=== PATIENT | female | born 1965 | race Caucasian/White ===

== ENCOUNTER 2018-04-25 22:06 | Observation (INO) | payer OTHER ==
[2018-04-25] MEDS ORDERED: ONDANSETRON 4 MG/2 ML VIAL IVP STA (23:03)
[2018-04-25] MEDS ORDERED: SODIUM CHLORIDE 0.9% 1,000 ML IV STA ×2 (23:03)
[2018-04-25] MEDS ORDERED: KETOROLAC 30 MG/ML 1 ML VIAL IVP STA (23:03)
[2018-04-25 23:43] LABS: Basophils % (A) 0 %; Eosinophils % (A) 0 %; HCT 43.9 % (34.0-46.0); HGB 14.1 gm/dL (11.4-16.0); Lymphocytes # (A) 0.9 k/uL (1.0-4.8); Lymphocytes % (A) 7 %; MCH 30.7 pg (25.0-35.0); MCHC 32.2 g/dL (31.0-37.0); MCV 95.5 fL (80.0-100.0); Mean Platelet Volume 7.2; Monocytes # (A) 0.3 k/uL (0-1.0); Monocytes % (A) 2 %; Neutrophils # (A) 10.8 k/uL (1.3-7.7); Neutrophils % (A) 89 %; Platelet Count 270 k/uL (150-450); RBC 4.59 m/uL (3.80-5.40); RDW 13.1 % (11.5-15.5); WBC 12.1 k/uL (3.8-10.6)
[2018-04-25 23:54] LABS: Calcium 9.7 mg/dL (8.4-10.2); Total Bilirubin 0.5 mg/dL (0.2-1.3); Total Protein 8.2 g/dL (6.3-8.2)
[2018-04-26 00:05] LABS: Potassium 4.4 mmol/L (3.5-5.1)
--- NOTE | 2018-04-26 00:06 | CT ---
EXAMINATION TYPE: CT abdomen pelvis wo con DATE OF EXAM: 04/25/2018 COMPARISON: None HISTORY: left flank pain CT DLP: 385.8 mGycm Automated exposure control for dose reduction was used. TECHNIQUE: Helical acquisition of images was performed from the lung bases through the pelvis. FINDINGS: Lung bases are clear. There is no pleural effusion. Heart size is normal. There is no pericardial eff usion. Stomach appears normal. Liver spleen appear normal. There are clips from cholecystectomy. Bile ducts are not dilated. There is moderate left-sided hydronephrosis and perinephric edema. There is periureteral edema. There are 2 5 mm calcifications in the pelvis on the left side that could be stones within the distal left ureter. Right kidney has normal size and contour without hydronephrosis. The bladder distends smooth ly. There is no free fluid in the pelvis. There is no intestinal wall thickening. There is no mesente shaji edema or adenopathy. There is no inguinal hernia. The lumbar vertebra have normal alignment. There is narrowing of L4-5 di sc space. There is no compression fracture. IMPRESSION: HIGH-GRADE OBSTRUCTION OF THE LEFT UPPER COLLECTING SYSTEM WITH PERIURETERAL AND PERINEPHRIC EDEMA. 3 MM CALCULUS UPPER POLE LEFT KIDNEY. THERE ARE PROBABLY OBSTRUCTING CALCULI IN THE DISTAL LEFT URETER .
--- NOTE | 2018-04-26 00:41 | ED ---
Abdominal Pain HPI - General Chief Complaint: Abdominal Pain Stated Complaint: Kidney stone Time Seen by Provider: 04/25/18 22:49 Source: patient Mode of arrival: ambulatory Limitations: no limitations - History of Present Illness Initial Comments: This 53-year-old white female presents with a complaint of some left flank pain. She states that this has been present over the last 2 days. She denies any anterior abdominal pain. She's had some slight urgency and frequency but no dysuria or hematuria. She denies any known fever but has had some chills. She's had nausea and several episodes of vomiting. She denies any history of kidney stones or pyelonephritis. She denies any previous similar symptoms. No other complaints or modifying factors. She states that the pain is been fairly severe. - Related Data Home Medications Medication Instructions Recorded Confirmed Acetaminophen Tab [Tylenol Tab] 500 mg PO TID 04/25/18 04/25/18 Biotin 5 mg PO DAILY 04/25/18 04/25/18 Calcium Carbonate/Vitamin D3 1 cap PO BID 04/25/18 04/25/18 [Calcium 600-Vit D3 500 Softgel] Calcium/Magnesium/Zinc 1 tab PO DAILY 04/25/18 04/25/18 [Iiqjtqc-Udrnythve-Hmbt Tablet] DULoxetine HCL [Cymbalta] 30 mg PO BID 04/25/18 04/25/18 Dextroamphetamine/Amphetamine 10 mg PO BID 04/25/18 04/25/18 [Adderall] Meloxicam [Mobic] 7.5 mg PO DAILY 04/25/18 04/25/18 Pyridoxine HCl (Vitamin B6) 100 mg PO DAILY 04/25/18 04/25/18 [Vitamin B-6] Tart Borja Extract 1200mg 1,200 mg PO DAILY 04/25/18 04/25/18 Topiramate [Topamax] 100 mg PO BID 04/25/18 04/25/18 Allergies Allergy/AdvReac Type Severity Reaction Status Date / Time No Known Allergies Allergy Verified 04/25/18 22:33 Review of Systems ROS Statement: Those systems with pertinent positive or pertinent negative responses have been documented in the HPI. ROS Other: All systems not noted in ROS Statement are negative. Past Medical History Additional Past Medical History / Comment(s): fibromyalgia. neuropathy. History of Any Multi-Drug Resistant Organisms: None Reported Past Surgical History: Appendectomy, Cholecystectomy Past Psychological History: ADD/ADHD Smoking Status: Never smoker Past Alcohol Use History: Occasional Past Drug Use History: Marijuana General Exam - General Exam Comments Initial Comments: GENERAL: The patient is well nourished and well hydrated. VITAL SIGNS: Heart rate, blood pressure, respiratory rate reviewed as recorded in nurse's notes. EYES: Pupils are round and reactive. Extraocular movements are intact. No conjunctival / lid redness or swelling. ENT: No external evidence of injury, swelling, or ecchymosis. Airway is patent. Throat is clear. NECK: Nontender. No swelling or evidence of injury. No subcutaneous emphysema. Trachea is midline. No thyroid mass. HEART: Regular rate and rhythm. Good peripheral pulses. LUNGS/CHEST: Breath sounds clear and equal bilaterally. No rales, rhonchi, or wheezes. No ecchymosis, subcutaneous emphysema, or tenderness. ABDOMEN: There is moderate tenderness noted to the left flank. No anterior abdominal tenderness. No palpable masses or organomegaly. No peritoneal signs. No abdominal wall swelling or ecchymosis. EXTREMITIES: No extremity tenderness. Normal muscle tone and function. No thoracolumbar tenderness. NEUROLOGIC: Sensation is grossly intact. Cranial nerve exam reveals face is symmetrical, tongue is midline, speech is clear. SKIN: No abrasions or ecchymosis is noted. No induration or masses noted. PSYCHIATRIC: Alert and oriented. Appropriate behavior and judgment. Limitations: no limitations Course Vital Signs 04/25/18 04/26/18 22:13 00:39 Temperature 97.5 F L Pulse Rate 78 82 Respiratory 16 18 Rate Blood Pressure 116/73 119/75 O2 Sat by Pulse 100 100 Oximetry Medical Decision Making - Medical Decision Making The patient was seen and examined. All diagnostics are reviewed. The computed tomography scan does show evidence of some hydronephrosis on the left side. There is a stone in the left kidney. There is also to likely stones present to the distal left ureter measuring 5 mm and 2 mm. There is some edema noted to the left ureter as well. The laboratory does show some mild renal insufficiency. She receives some Toradol as well as some Zofran moderate relief of symptomatology. An IV was started and she was thoroughly hydrated. The patient states that the Toradol and Zofran initially helped but the pain and nausea came back and she is later given some morphine and Reglan. Rocephin is given intravenously as well. She states that she is unable to urinate. She' s tried several times in the ER but cannot urinate. She feels like she has to go and has some tenderness in the suprapubic region. A Carranza catheter will be placed. She is highly requesting admission to the hospital for further treatment. Case is discussed with Dr. Vargas and he is agreeable. - Lab Data Result diagrams: 04/25/18 23:30 04/25/18 23:30 Lab Results 04/25/18 04/25/18 Range/Units 23:30 23:30 WBC 12.1 H (3.8-10.6) k/uL RBC 4.59 (3.80-5.40) m/uL Hgb 14.1 (11.4-16.0) gm/dL Hct 43.9 (34.0-46.0) % MCV 95.5 (80.0-100.0) fL MCH 30.7 (25.0-35.0) pg MCHC 32.2 (31.0-37.0) g/dL RDW 13.1 (11.5-15.5) % Plt Count 270 (150-450) k/uL Neutrophils % 89 % Lymphocytes % 7 % Monocytes % 2 % Eosinophils % 0 % Basophils % 0 % Neutrophils # 10.8 H (1.3-7.7) k/uL Lymphocytes # 0.9 L (1.0-4.8) k/uL Monocytes # 0.3 (0-1.0) k/uL Eosinophils # 0.0 (0-0.7) k/uL Basophils # 0.0 (0-0.2) k/uL Sodium 142 (137-145) mmol/L Potassium 4.4 (3.5-5.1) mmol/L Chloride 110 H (98-107) mmol/L Carbon Dioxide 20 L (22-30) mmol/L Anion Gap 12 mmol/L BUN 34 H (7-17) mg/dL Creatinine 1.34 H (0.52-1.04) mg/dL Est GFR (CKD-EPI)AfAm 52 (>60 ml/min/1.73 sqM) Est GFR (CKD-EPI)NonAf 45 (>60 ml/min/1.73 sqM) Glucose 134 H (74-99) mg/dL Calcium 9.7 (8.4-10.2) mg/dL Total Bilirubin 0.5 (0.2-1.3) mg/dL AST 40 H (14-36) U/L ALT 28 (9-52) U/L Alkaline Phosphatase 60 (38-126) U/L Total Protein 8.2 (6.3-8.2) g/dL Albumin 5.0 (3.5-5.0) g/dL Disposition Clinical Impression: Ureterolithiasis, Kidney stones, Leukocytosis, Intractable nausea and vomiting , Urinary retention, Acute kidney injury Disposition: ADMITTED IP TO THIS HOSP Condition: Fair Is patient prescribed a controlled substance at d/c from ED?: No Referrals: None,Stated [Primary Care Provider] - 1-2 days Time of Disposition: 01:20 Decision Date: 04/26/18 Decision Time: 01:21
[2018-04-26] MEDS ORDERED: MORPHINE SULFATE 4 MG/ML SYRINGE IV STA (01:15)
[2018-04-26] MEDS ORDERED: METOCLOPRAMIDE 5 MG/ML 2 ML VIAL IVP STA (01:15)
[2018-04-26] MEDS ORDERED: HYDROcodone/APAP 5-325MG 1 EACH TAB PO PRN (01:21)
[2018-04-26] MEDS ORDERED: NALOXONE 0.4 MG/ML 1 ML VIAL IV PRN (01:21)
[2018-04-26] MEDS ORDERED: ACETAMINOPHEN TAB 325 MG TAB PO PRN (01:21)
[2018-04-26] MEDS ORDERED: ONDANSETRON 4 MG/2 ML VIAL IVP PRN (01:21)
[2018-04-26] MEDS ORDERED: METOCLOPRAMIDE 5 MG/ML 2 ML VIAL IVP PRN (01:25)
[2018-04-26 02:32] LABS: Appearance,Urine Clear (Clear); Bilirubin,Urine Negative (Negative); Blood,Urine Negative (Negative); Color,Urine Yellow; Glucose,Urine (UA) Negative (Negative); Ketones,Urine Negative (Negative); Leukocyte Esterase,Urine Negative (Negative); Nitrite,Urine Negative (Negative); Protein,Urine Negative (Negative); Specific Gravity,Urine 1.021 (1.001-1.035); Urobilinogen,Urine <2.0 mg/dL (<2.0)
[2018-04-26 02:58] VITALS: BMI 23.6
[2018-04-26] MEDS: Dextroamphetamine/Amphetamine [Adderall] 10 MG PO SCH ×2 (07:34→22:19)
[2018-04-26] MEDS: PANTOPRAZOLE 40 MG/10 ML VIAL IV SCH (07:40)
[2018-04-26] MEDS: ENOXAPARIN 40 MG/0.4 ML SYRINGE SQ SCH (07:40)
[2018-04-26] MEDS: CALCIUM CARB-VIT D 500MG-200UN 1 EACH TAB PO SCH ×2 (07:41→21:05)
[2018-04-26] MEDS: DULoxetine HCL 30 MG CAPSULE.DR PO SCH ×2 (07:41→21:05)
[2018-04-26] MEDS: MORPHINE SULFATE 4 MG/ML SYRINGE IV PRN ×3 (07:41→21:05)
[2018-04-26] MEDS: TOPIRAMATE 100 MG TAB PO SCH ×2 (07:41→21:05)
[2018-04-26] MEDS ORDERED: NON-FORMULARY DRUG (Pyridoxine Hcl (Vitamin B6) [Vitamin B-6] 100 MG) PO SCH (09:00)
[2018-04-26] MEDS ORDERED: TART CHERRY EXTRACT 1200 MG PO SCH (09:00)
[2018-04-26] MEDS ORDERED: NON-FORMULARY DRUG (Calcium/Magnesium/Zinc [Calcium-Magnesium-Zinc Tablet] 1 TAB) PO SCH (09:00)
[2018-04-26] MEDS ORDERED: NON-FORMULARY DRUG (Biotin [Biotin] 5 MG) PO SCH (09:00)
--- NOTE | 2018-04-26 15:59 | HP ---
HISTORY AND PHYSICAL CHIEF COMPLAINT: Left flank pain. HISTORY OF PRESENT ILLNESS: This is the first known admission for this 53-year-old white female. She has never had a history of stones before. She presented with left flank pain and was found to have ureteral obstruction on the left and was admitted. She has otherwise been fairly healthy, but she has a history of fibromyalgia. She did have enough pain that she experienced nausea and vomiting. REVIEW OF SYSTEMS: She has had no headaches, chest pain, shortness of breath, hypertension, heart disease, hematemesis, melena, hematochezia, history of renal failure, symptoms of UTI, diabetes, etc. Past medical history, family history, and personal and social histories reveal she is NOT ALLERGIC TO ANY MEDICATION. She has had 5 pregnancies and 4 deliveries. Surgically, she has had an appendectomy, cholecystectomy, hysterectomy and a procedure on her left upper arm where she had an infection. MEDICATIONS: Medications include: 1. Mobic. 2. Biotin. 3. Tylenol. 4. Calcium carbonate. 5. Calcium, magnesium and zinc complex. 6. Adderall 10 mg twice a day. 7. Cymbalta 30 mg twice a day. 8. B6. 9. Topamax 100 mg twice a day. She does not smoke. She drinks alcohol occasionally. Laboratory studies reveal white count 12,100 and her BUN is high at 34 with creatinine of 1.34. Urine was negative. There is no blood. PHYSICAL EXAMINATION: Temperature 97.9, pulse 75, respirations 16, blood pressure 103/66. In general she appeared to be well developed, well nourished, in no acute distress. Skin color was normal. Skin was warm and dry. Lymph nodes were not enlarged. Head, ears, eyes, nose, mouth and throat were normal. Neck veins were not distended. Thyroid was not enlarged. Chest was clear. Cardiac exam was normal. The abdomen was soft and nontender. She was tender in the left flank. EXTREMITIES: Normal. Neurologically she was intact. IMPRESSION: 1. Left-sided ureterolithiasis with hydronephrosis. 2. Elevated BUN and creatinine. 3. Fibromyalgia. PLAN: 1. Bed rest. 2. IV fluids. 3. Analgesics. 4. Urology consult. MMODL / IJN: [id number] /
--- NOTE | 2018-04-26 16:31 | P.GSCN ---
History of Present Illness Consult date: 04/26/18 History of present illness: This is a pleasant 53-year-old female who 48 hours ago began with severe left ureteral colic. This is the first time this is ever happened. She has a history of fibromyalgia. She was in [place] attending to the health needs of a friend when this occurred. She came back to the [place]. She is from [facility] but due to the severe colic ended up here at [facility]. She had a computed tomography scan identifying left-sided hydronephrosis with perinephric edema and periureteral edema consistent with a calyceal rupture up. There is hydronephrosis down into the pelvis. There are multiple calcifications probably due to phleboliths. It appears she has a 5 mm distal ureteral stone. She is in persistent pain. There's been no fever or chills. This is her first stone. There is no family history of stones. Review of Systems - Constitutional Reports chronic headaches, Reports chronic pain - Genitourinary Genitourinary: Reports as per HPI - Musculoskeletal Reports as per HPI Past Medical History Additional Past Medical History / Comment(s): fibromyalgia. neuropathy. History of Any Multi-Drug Resistant Organisms: None Reported Past Surgical History: Appendectomy, Cholecystectomy, Hysterectomy Additional Past Surgical History / Comment(s): uretheral mesh, cervix removed Past Psychological History: ADD/ADHD Smoking Status: Never smoker Past Alcohol Use History: Occasional Past Drug Use History: Marijuana Medications and Allergies Home Medications Medication Instructions Recorded Confirmed Type Acetaminophen Tab [Tylenol Tab] 500 mg PO TID 04/25/18 04/25/18 History Biotin 5 mg PO DAILY 04/25/18 04/25/18 History Calcium Carbonate/Vitamin D3 1 cap PO BID 04/25/18 04/25/18 History [Calcium 600-Vit D3 500 Softgel] Calcium/Magnesium/Zinc 1 tab PO DAILY 04/25/18 04/25/18 History [Opurgoa-Bedoqzijm-Gjgr Tablet] DULoxetine HCL [Cymbalta] 30 mg PO BID 04/25/18 04/25/18 History Dextroamphetamine/Amphetamine 10 mg PO BID 04/25/18 04/25/18 History [Adderall] Meloxicam [Mobic] 7.5 mg PO DAILY 04/25/18 04/25/18 History Pyridoxine HCl (Vitamin B6) 100 mg PO DAILY 04/25/18 04/25/18 History [Vitamin B-6] Tart Borja Extract 1200mg 1,200 mg PO DAILY 04/25/18 04/25/18 History Topiramate [Topamax] 100 mg PO BID 04/25/18 04/25/18 History Allergies Allergy/AdvReac Type Severity Reaction Status Date / Time No Known Allergies Allergy Verified 04/25/18 22:33 Surgical - Exam Vital Signs Temp Pulse Resp BP Pulse Ox 97.5 F L 78 16 116/73 100 04/25/18 22:13 04/25/18 22:13 04/25/18 22:13 04/25/18 22:13 04/25/18 22:13 - General well developed, well nourished, moderate distress - Eyes PERRL - ENT no hearing loss - Neck trachea midline - Respiratory normal expansion, normal respiratory effort - Cardiovascular Rhythm: regular - Abdomen Abdomen: tender - Integumentary no rash, no growths - Neurologic normal coordination, normal sensation - Musculoskeletal normal posture - Psychiatric oriented to person, oriented to place, speech is normal, memory intact Results - Labs 04/25/18 23:30 04/25/18 23:30 Abnormal Lab Results - Last 24 Hours (Table) 04/25/18 04/25/18 Range/Units 23:30 23:30 WBC 12.1 H (3.8-10.6) k/uL Neutrophils # 10.8 H (1.3-7.7) k/uL Lymphocytes # 0.9 L (1.0-4.8) k/uL Chloride 110 H (98-107) mmol/L Carbon Dioxide 20 L (22-30) mmol/L BUN 34 H (7-17) mg/dL Creatinine 1.34 H (0.52-1.04) mg/dL Glucose 134 H (74-99) mg/dL AST 40 H (14-36) U/L Microbiology - Last 24 Hours (Table) 04/26/18 01:49 Urine Culture - Preliminary Urine,Catheterized Diabetes panel 04/25/18 Range/Units 23:30 Sodium 142 (137-145) mmol/L Potassium 4.4 (3.5-5.1) mmol/L Chloride 110 H (98-107) mmol/L Carbon Dioxide 20 L (22-30) mmol/L BUN 34 H (7-17) mg/dL Creatinine 1.34 H (0.52-1.04) mg/dL Glucose 134 H (74-99) mg/dL Calcium 9.7 (8.4-10.2) mg/dL AST 40 H (14-36) U/L ALT 28 (9-52) U/L Alkaline Phosphatase 60 (38-126) U/L Total Protein 8.2 (6.3-8.2) g/dL Albumin 5.0 (3.5-5.0) g/dL Calcium panel 04/25/18 Range/Units 23:30 Calcium 9.7 (8.4-10.2) mg/dL Albumin 5.0 (3.5-5.0) g/dL Pituitary panel 04/25/18 Range/Units 23:30 Sodium 142 (137-145) mmol/L Potassium 4.4 (3.5-5.1) mmol/L Chloride 110 H (98-107) mmol/L Carbon Dioxide 20 L (22-30) mmol/L BUN 34 H (7-17) mg/dL Creatinine 1.34 H (0.52-1.04) mg/dL Glucose 134 H (74-99) mg/dL Calcium 9.7 (8.4-10.2) mg/dL Adrenal panel 04/25/18 Range/Units 23:30 Sodium 142 (137-145) mmol/L Potassium 4.4 (3.5-5.1) mmol/L Chloride 110 H (98-107) mmol/L Carbon Dioxide 20 L (22-30) mmol/L BUN 34 H (7-17) mg/dL Creatinine 1.34 H (0.52-1.04) mg/dL Glucose 134 H (74-99) mg/dL Calcium 9.7 (8.4-10.2) mg/dL Total Bilirubin 0.5 (0.2-1.3) mg/dL AST 40 H (14-36) U/L ALT 28 (9-52) U/L Alkaline Phosphatase 60 (38-126) U/L Total Protein 8.2 (6.3-8.2) g/dL Albumin 5.0 (3.5-5.0) g/dL - Imaging CT scan - abdomen: report reviewed, image reviewed CT scan - pelvis: report reviewed, image reviewed Assessment and Plan Assessment: Impression: Severe left ureteral and renal colic with hydronephrosis. Most likely secondary to left ureteral calculus. History of fibromyalgia. Recommendations: Due to the significant amount of discomfort as well as edema I think a retrograde pyelogram and probable stone manipulation is appropriate. She is also having persistent pain. The patient wants to have this procedure done. She'll be set up for a cystoscopy left retrograde pyelogram left ureteroscopy laser lithotripsy and stent placement.
[2018-04-27] MEDS: MORPHINE SULFATE 4 MG/ML SYRINGE IV PRN (05:57)
[2018-04-27] MEDS: Dextroamphetamine/Amphetamine [Adderall] 10 MG PO SCH (08:17)
[2018-04-27] MEDS: CALCIUM CARB-VIT D 500MG-200UN 1 EACH TAB PO SCH (08:17)
[2018-04-27] MEDS: PANTOPRAZOLE 40 MG/10 ML VIAL IV SCH (08:18)
[2018-04-27] MEDS: TOPIRAMATE 100 MG TAB PO SCH (08:19)
[2018-04-27] MEDS: DULoxetine HCL 30 MG CAPSULE.DR PO SCH (08:19)
[2018-04-27] MEDS: ENOXAPARIN 40 MG/0.4 ML SYRINGE SQ SCH (08:19)
[2018-04-27] MEDS ORDERED: IV FLUID CONTINUATION 500 ML IV ONE (08:46)
[2018-04-27] MEDS ORDERED: ONDANSETRON 4 MG/2 ML VIAL IVP ONE (08:54)
[2018-04-27] MEDS ORDERED: DEXAMETHASONE SOD PHOSPHATE 10 MG/ML 1 ML VIAL IV ONE (08:55)
[2018-04-27] MEDS ORDERED: ePHEDrine SULFATE/0.9% NACL/PF 50 MG/5 ML SYRINGE IV ONE (09:06)
[2018-04-27] MEDS ORDERED: PROPOFOL 10 MG/ML 20 ML VIAL IV ONE (09:06)
[2018-04-27] MEDS ORDERED: fentaNYL (PF) 50 MCG/ML 2 ML AMP ONE (09:06)
[2018-04-27] MEDS ORDERED: LIDOCAINE 1% INJ 10MG/ML (20 ML MDV) ONE (09:06)
[2018-04-27] MEDS ORDERED: MIDAZOLAM 2 MG/2 ML VIAL ONE (09:06)
[2018-04-27] MEDS ORDERED: IOPAMIDOL-370 50ML BTL MISCELLANE ONE (09:37)
[2018-04-27] MEDS ORDERED: LACTATED RINGERS 1,000 ML IV ONE (09:53)
--- NOTE | 2018-04-27 10:00 | P.OP ---
Date of Procedure: 04/27/18 Preoperative Diagnosis: Left ureteral stone Postoperative Diagnosis: Same Procedure(s) Performed: Cystoscopy, left retrograde pyelogram, left ureteroscopy laser lithotripsy Anesthesia: MICHAEL Surgeon: Jose Liu Pathology: other (Stone) Condition: stable Disposition: PACU Indications for Procedure: The patient is a 53-year-old female from [place] who was in [place] when she developed severe ureteral colic. She made it back to [place] and ended up in the emergency room. She is admitted with severe ureteral colic hydronephrosis inder renal edema and a presumed distal ureteral stone. Because of persistent pain she comes in the operating room for stone removal. Description of Procedure: The patient is brought to the operating suite. She is given a successful general endotracheal anesthesia. She's placed lithotomy position with a sterile prep and drape. Cystoscopy of the Foroblique lens and 22-[place] sheath identifies normal urethra. The left ureteral orifice was not edematous the right is normal. The bladder mucosa is unremarkable. With an 8 cone-tipped catheter retrograde pyelograms performed and there is a filling defect in the intramural tunnel. This was not seen on KUB. With the 7-[place] semirigid ureteroscope the ureter is intubated. The stone is seen. With the 365 probe the stone was broken into tiny pieces and flushed out of the ureter. I then passed the ureteroscope up in the proximal ureter there is no remaining stone. He is not enough edema to leave a stent. The stone fragments are sent to pathology. The bladder strain. The patient is awakened and returned recovery room good condition. She tolerated the procedure well. She'll be discharged home later today.
[2018-04-27 10:21] VITALS: RESP 16
--- NOTE | 2018-04-27 10:28 | FL ---
EXAMINATION TYPE: FL urography retrograde DATE OF EXAM: 04/27/2018 COMPARISON: CT abdomen and pelvis 2 days ago. HISTORY: Obstructive left ureter calculus. TECHNIQUE: Fluoroscopy. FINDINGS: Fluoroscopic guidance was provided during cystoscopy with retrograde urogram and lithotrip sy procedure performed by Dr. Liu. A total of 22 seconds of fluoroscopic time was utilized during the procedure and single spot fluoroscopic image is acquired. Single image acquired shows access at l eft UVJ with opacification of distal left ureter and abrupt cut off likely reflecting known distal ob structing ureter calculus. IMPRESSION: As Above.
[2018-04-27] MEDS ORDERED: CEPHALEXIN 500 MG CAP PO SCH (13:00)
[2018-04-27 14:57] VITALS: BP 101/64; PULSE 95; TEMP 98.9
--- NOTE | 2018-04-27 23:00 | DS ---
DISCHARGE SUMMARY CHIEF COMPLAINT: Ureterolithiasis. HISTORY OF PRESENT ILLNESS AND PHYSICAL EXAM: Details of this lady's history and physical can be found in the initial workup. LABORATORY STUDIES: While she was the hospital, she had laboratory studies, details which can be found in the laboratory section of her chart. COURSE IN HOSPITAL: After admission she was placed on bedrest, started on intravenous fluids and seen by Urology and taken for cystoscopy and lithotripsy and the stone was removed. It was felt she could go home and she will follow up with us in the office as well as urology. FINAL DIAGNOSIS: Ureteral calculus. OPERATIONS: Cystoscopy and lithotripsy. CONSULTATIONS: Urology. She is improved. MMODL / IJN: [id number] /
== END 2018-04-27 14:59 | disposition home or self-care (01) ==
LOC: EC 22:06 → INTOOBSV 04-26 01:21 → 4MS4W 04-26 01:21 → UNDODISIN 04-27 14:59
PROVIDERS: ADMIT Family Medicine; ATTEND Family Medicine
PROC: 0TC78ZZ Extirpation of Matter from Left Ureter, Via Natural or Artificial Opening Endoscopic (ICD-10-PCS; principal; 2018-04-27 12:00)
PROC: BT1F1ZZ Fluoroscopy of Left Kidney, Ureter and Bladder using Low Osmolar Contrast (ICD-10-PCS; 2018-04-27 12:00)
DX: N13.2 Hydronephrosis with renal and ureteral calculous obstruction (principal); D72.829 Elevated white blood cell count, unspecified; M79.7 Fibromyalgia; F90.9 Attention-deficit hyperactivity disorder, unspecified type; N17.9 Acute kidney failure, unspecified; I25.2 Old myocardial infarction; E78.5 Hyperlipidemia, unspecified; G62.9 Polyneuropathy, unspecified; K58.9 Irritable bowel syndrome, unspecified; Z90.49 Acquired absence of other specified parts of digestive tract; Z79.1 Long term (current) use of non-steroidal anti-inflammatories (NSAID); Z79.899 Other long term (current) drug therapy
CPT/HCPCS: 52353; 96376 ×2; 96361 ×3; 96366; 96375 ×3; 96365; 99285; 51702; 36415; 80053; 85025; 81003; 88300; 87086; 74420; 74176; G0378 ×2; C1758; C1769; J2250; J2270 ×2; J1100; J2765; J2405 ×3; J2001; J0696 ×2; J3010; J1885; J2704; C9113 ×2; Q9967